=== PATIENT | male | born 1985 | race Hispanic/Latino ===

== ENCOUNTER 2022-12-15 01:20 | Emergency (ER) | payer OTHER ==
[~2022-12-15] VITALS: Ht 162.6 cm; Wt 85.1 kg
[~2022-12-15 01:20] MED LIST: ACETAMINOPHEN325 M1 PO; IBUPROFEN400 MG PO; NORCO 5-325 TA1 EACH PO
[2022-12-15 01:38] LABS: BASOPHILS 1.2 % (0-2); EOSINOPHILS 2.6 % (0-6); HEMATOCRIT 47.1 % (35.0-50.0); HEMOGLOBIN 15.9 g/dL (12.0-18.0); LYMPHOCYTES 30.7 % (24-44); MCH 29.5 (27-36); MCHC 33.9 g/dl (30-36); MCV 87.2 fl (81-99); MONOCYTES 8.9 % (0-12); NEUTROPHILS 56.6 % (39-80); PLATELET COUNT 262 K/uL (140-440); RDW 13.2 (10.5-15.0)
[2022-12-15 01:54] LABS: ALBUMIN/GLOBULIN RATIO 1.08 (1.1-2.4); BILIRUBIN, TOTAL 0.3 ng/dL (0.2-1.0); CALCIUM 9.2 mg/dL (8.5-10.1); CREATININE, SERUM 1.19 mg/dL (0.70-1.30); PROTEIN, TOTAL 7.7 g/dL (6.4-8.2)
[2022-12-15 02:37] LABS: BILIRUBIN, URINE NEGATIVE (negative); BLOOD/HGB, URINE NEGATIVE (Negative); KETONE, URINE NEGATIVE (Negative); LEUK ESTERASE, URINE NEGATIVE (negative); NITRITE, URINE NEGATIVE (negative)
[2022-12-15] MEDS ORDERED: HYDROCODON-ACE1 EA10 PO (03:05)
[2022-12-15] MEDS ORDERED: ONDANSETRON ODT8 MG PO (03:05)
[2022-12-15 03:20] VITALS: BP 134/87
== END 2022-12-15 03:19 | disposition home or self-care (01) ==
LOC: ED 01:20
PROVIDERS: Family Medicine
DX: K80.50 Calculus of bile duct without cholangitis or cholecystitis without obstruction (principal); K80.20 Calculus of gallbladder without cholecystitis without obstruction; F17.200 Nicotine dependence, unspecified, uncomplicated; Z88.5 Allergy status to narcotic agent
CPT/HCPCS: 36415; 74177; 80053; 81003; 83690; 85025; A9270; J2405; J3010; J7030; Q9967